=== PATIENT | male | born 1995 | race Caucasian/White ===

== ENCOUNTER 2016-12-22 20:41 | Emergency (ER) | payer BC ==
[~2016-12-22] VITALS: Ht 193 cm; Wt 82.1 kg
[~2016-12-22 20:41] MED LIST: MEDLIST
[2016-12-22 20:52] VITALS: TEMP 37; Ht 193 cm; Wt 82.1 kg
[2016-12-22 21:36] VITALS: O2SAT 96
[2016-12-22] MEDS ORDERED: DiphenhydrAMINE HCL 50 MG/ML VIAL IV STA (21:41)
[2016-12-22] MEDS ORDERED: METHYLPREDNISOLONE 125 MG VIAL IV STA (21:41)
[2016-12-22] MEDS ORDERED: RANITIDINE HCL 50 MG/100 ML D5W IV STA (21:41)
--- NOTE | 2016-12-22 23:12 | EMERGENCY ROOM VISIT NOTE ---
History Report prepared by Scribe: Nancie Ramos Under the Supervision of: Dr. Edwardo Ayers D.O. First contact with patient: 21:41 Chief Complaint: ALLERGIC REACTION Stated Complaint: ALLERGIC REACTION, SWELLING, ITCHING (DERMAL) Nursing Triage Summary: Patient presents with allergic reaction to an unknown substance He notes generalized redness, hives to chest, swollen ears, mild shortness of breath airway patent History of Present Illness The patient is a 21 year old male who presents to the Emergency Room with complaints of an allergic reaction that started prior to arrival. He reports he was playing volleyball inside earlier this evening when he thinks he may have been stung by something. He is not sure what he was stung by. He complains of hives to his chest area, swollen ears and mild shortness of breath. Benadryl taken prior to arrival has provided good relief. He did wear a new headband this evening when playing, but denies any other changes to laundry detergents or lotions. He admits to a similar episode with a bee sting in the past. 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 A total of 10 systems reviewed and were otherwise negative. Past Medical & Surgical Medical Problems: (1) History of bee sting allergy Social History Smoking Status: Never Smoker Alcohol Use: occasionally Drug Use: none Marital Status: single Housing Status: lives with family Occupation Status: [employer] student Current/Historical Medications Scheduled Prednisone (Prednisone), 2 TAB PO DAILY Allergies Coded Allergies: No Known Allergies (Unverified , NONE, 08/23/08) Physical Exam Vital Signs Date Time Temp Pulse Resp B/P (MAP) Pulse Ox O2 Delivery O2 Flow Rate FiO2 12/22/16 22:46 56 16 100/58 96 Room Air 12/22/16 21:36 96 Room Air 12/22/16 21:07 73 12/22/16 20:52 37.0 103 20 113/75 96 Room Air Physical Exam CONSTITUTIONAL/VITAL SIGNS: Reviewed / noted above. GENERAL: Non-toxic in appearance. INTEGUMENTARY: Diffuse erythema to chest, back, face and abdomen. Warm, dry, and Reynolds. HEAD: Normocephalic. EYES: without scleral icterus or trauma. ENT/OROPHARYNX: clear and moist. LYMPHADENOPATHY/NECK: Is supple without lymphadenopathy or meningismus. RESPIRATORY: Lungs clear and equal. CARDIOVASCULAR: Regular rate and rhythm. GI/ABDOMEN: Soft and nontender. No organomegaly or pulsatile mass. No rebound or guarding. Normal bowel sounds. EXTREMITIES: Warm and well perfused. BACK: No CVA tenderness. NEUROLOGICAL: Intact without focal deficits. PSYCHIATRIC: normal affect. MUSCULOSKELETAL: Normally developed with good muscle tone. Medical Decision & Procedures Medications Administered Medications (Trade) Dose Ordered Sig/[place] Route Start Time Stop Time Status Last Admin Dose Admin Ranitidine HCl (zANTac IV) 50 mg NOW STAT IV 12/22/16 21:41 12/22/16 21:42 DC 12/22/16 21:53 50 MG Methylprednisolone Sodium Succinate (Solu-Medrol IV) 125 mg NOW STAT IV 12/22/16 21:41 12/22/16 21:42 DC 12/22/16 21:53 125 MG Diphenhydramine HCl (Benadryl Inj) 25 mg NOW STAT IV 12/22/16 21:41 12/22/16 21:42 DC 12/22/16 21:53 25 MG ED Course 2140: Benadryl 25 mg IV, Solu-Medrol 125 mg IV, Zantac 50 mg IV. 2154: Previous medical records were reviewed. The patient was evaluated in room C10. A complete history and physical examination was performed. 2: I reevaluated the patient. He is feeling better and resting comfortably. I discussed his discharge instructions and he verbalized complete understanding and agreement. Medical Decision Etiologies such as allergic reaction, anaphylaxis, urticaria, Ortiz-Chevy syndrome, toxic epidermal necrolysis, erythema multiforme, cellulitis, as well as others were entertained. This is a 21-year-old male who presents to the ED with chief complaint of allergic reaction. The patient states that he is playing volleyball tonight. The patient reports that he developed some redness and itchiness all over his body. He is uncertain of a cause. He does report using a new headband that he did not wash. He also reports that he thought he might have suffered a bug bite to the right chest wall. The patient denies any respiratory difficulty. Denies any swelling of his tongue or mucous membranes. He is not taking any medications. His vital signs are normal. His physical exam is noted above. He has diffuse erythema to the areas above the waist. There is no swelling of the airway, mucous membranes her lips. The patient is in no distress. He was treated with IV Solu-Medrol, IV Benadryl and IV Zantac. His symptoms did improve with this. He was discharged on prednisone. He will continue Benadryl. He is felt to be stable for discharge. Medication Reconcilliation Current Medication List: was personally reviewed by me Impression Primary Impression: Allergic reaction Scribe Attestation The scribe's documentation has been prepared under my direction and personally reviewed by me in its entirety. I confirm that the note above accurately reflects all work, treatment, procedures, and medical decision making performed by me. Departure Information Dispostion Home / Self-Care Prescriptions Prednisone (Prednisone) 20 Mg Tab 2 TAB PO DAILY for 4 Days, #8 TAB Prov: Edwardo Ayers D.O. 12/22/16 Referrals No Doctor, Assigned (PCP) Patient Instructions ED Allergic Reaction General Other, My [facility] Additional Instructions Take prednisone as prescribed. Benadryl: Take 1-2 tablets every 6 hours for the next 3 days. Follow-up with your doctor for further care and evaluation in 3-5 days if symptoms persist. Return to the emergency department for worsening or new symptoms or any concerns. You have been examined and treated today on an emergency basis only. This is not a substitute for, or an effort to provide, complete comprehensive medical care. It is impossible to recognize and treat all injuries or illnesses in a single emergency department visit. It is therefore important that you follow up closely with your doctor. Call as soon as possible for an appointment.
[2016-12-22] MEDS ORDERED: PRED20TA PO (23:20)
[2016-12-22 23:27] VITALS: BP 99/46; PULSE 61; O2SAT 99
== END 2016-12-22 23:25 | disposition home or self-care (01) ==
LOC: C.EDB 20:42 → C.EDC 23:25
DX: T78.40XA Allergy, unspecified, initial encounter (principal); X58.XXXA Exposure to other specified factors, initial encounter